=== PATIENT | male | born 1980 | race Caucasian/White ===

== ENCOUNTER 2017-05-05 08:39 | Emergency (ER) | payer OTHER ==
[~2017-05-05] VITALS: Ht 172.7 cm; Wt 83.9 kg
[2017-05-05] MEDS ORDERED: NEURONTIN800 MG PO (08:49)
[2017-05-05] MEDS ORDERED: TOPAMAX50 MG PO (08:50)
[2017-05-05] MEDS ORDERED: LAMICTAL150 MG PO (08:50)
[2017-05-05] MEDS ORDERED: EFFEXOR XR75 MG PO (08:51)
[2017-05-05] MEDS ORDERED: SYNTHROID112 MCG PO (08:51)
[2017-05-05] MEDS ORDERED: LEXAPRO20 MG PO (08:56)
[2017-05-05] MEDS ORDERED: ALLER-FLO15.8 ML NAS (08:58)
[2017-05-05] MEDS ORDERED: ALL DAY ALLERGY10 M3 PO (09:00)
[2017-05-05] MEDS ORDERED: MILK OF MA400 MG/5 M PO (09:00)
[2017-05-05] MEDS ORDERED: CORTIZONE-10 PL28 GM TOP (09:00)
[2017-05-05] MEDS ORDERED: NAPROXEN500 MG PO (09:01)
== END 2017-05-05 09:32 | disposition home or self-care (01) ==
LOC: ED 08:39
DX: R51 Headache (principal); Z87.891 Personal history of nicotine dependence; G40.909 Epilepsy, unspecified, not intractable, without status epilepticus; Z79.51 Long term (current) use of inhaled steroids; Z79.899 Other long term (current) drug therapy; Z88.0 Allergy status to penicillin; Z88.8 Allergy status to other drugs, medicaments and biological substances; Z98.890 Other specified postprocedural states
CPT/HCPCS: 99282

== ENCOUNTER 2018-04-04 06:50 | Emergency (ER) | payer OTHER ==
[~2018-04-04] VITALS: Ht 172.7 cm; Wt 83.9 kg
[~2018-04-04 06:50] MED LIST: ALL DAY ALLERGY10 M3 PO; ALLER-FLO15.8 ML NAS; CORTIZONE-10 PL28 GM TOP; EFFEXOR XR75 MG PO; LAMICTAL150 MG PO; LEXAPRO20 MG PO; MILK OF MA400 MG/5 M PO; NAPROXEN500 MG PO; NEURONTIN800 MG PO; SYNTHROID112 MCG PO; TOPAMAX50 MG PO
== END 2018-04-04 09:15 | disposition home or self-care (01) ==
LOC: ED 06:50
DX: G40.909 Epilepsy, unspecified, not intractable, without status epilepticus (principal); S16.1XXA Strain of muscle, fascia and tendon at neck level, initial encounter; S29.012A Strain of muscle and tendon of back wall of thorax, initial encounter; Z88.0 Allergy status to penicillin; Z88.8 Allergy status to other drugs, medicaments and biological substances; Z79.899 Other long term (current) drug therapy; X58.XXXA Exposure to other specified factors, initial encounter
CPT/HCPCS: 71046; 72125; 80053; 83605; 85025; 96374; 99284; J1885